=== PATIENT | female | born 1940 | race Caucasian/White ===

== ENCOUNTER 2016-10-27 15:18 | Emergency (ER) | payer OTHER ==
[~2016-10-27] VITALS: Ht 162.6 cm; Wt 54.5 kg
[~2016-10-27 15:18] MED LIST: HYDROCHLOROTHIA25 MG PO; POTASSIUM CHLO10 ME3 PO
[2016-10-27 16:04] LABS: HEMATOCRIT 36.2 % (36.0-46.0); MCH 30.1 PG (29.0-34.0); MCHC 32.6 G/DL (30.0-36.0); MCV 92.3 FL (83-99); MEAN PLAT.VOLUME 7.9 uM^3 (9.5-12.4); PLATELET COUNT 200 K/uL (156-360); RBC DIS.WIDTH-CV 14.7 % (11.8-14.6); RED BLOOD COUNT 3.92 M/uL (3.80-5.20); WHITE BLOOD COUNT 5.6 K/uL (4.1-10.2)
[2016-10-27 16:20] LABS: CHLORIDE 101 mEq/L (99-109); POTASSIUM 3.7 mEq/L (3.7-5.4); SODIUM 133 mEq/L (136-147)
[2016-10-27 16:21] LABS: GLUCOSE 74 mg/dL (70-99)
[2016-10-27 16:23] LABS: ANION GAP 13 MEQ/L (2-14)
[2016-10-27 16:25] LABS: GFR ESTIMATE (CALCULATED) > 59 mL/min/
[2016-10-27 16:26] LABS: UREA NITROGEN (BUN) 14 mg/dL (9-23)
[2016-10-27 16:40] LABS: ADD MIUA? YES; BILIRUBIN NEGATIVE; BLOOD SMALL; COLOR COLORLESS ((YELLOW)); GLUCOSE (STRIP) NEGATIVE; KETONES NEGATIVE; LEUKOCYTES NEGATIVE; NITRITE NEGATIVE; PROTEIN (STRIP) NEGATIVE; SPECIFIC GRAVITY 1.004 (1.000-1.030); UROBILINOGEN 0.2 MG/DL (0.2-1.0)
[2016-10-27 16:49] LABS: BACTERIA RARE /HPF; EPITHELIAL CELLS NONE SEEN /HPF; MUCUS TRACE /LPF; RED BLOOD CELLS 0-5 /HPF (0-5); UCUL ADDED? NO; WHITE BLOOD CELLS NONE SEEN /HPF (0-5)
[2016-10-27 19:39] VITALS: BP 136/63
== END 2016-10-27 19:40 | disposition home or self-care (01) ==
LOC: EME 15:18
PROVIDERS: Emergency Medicine
PROC: 3E0234Z Introduction of Serum, Toxoid and Vaccine into Muscle, Percutaneous Approach (ICD-10-PCS; principal; 2016-10-27)
DX: S50.311A Abrasion of right elbow, initial encounter (principal); S00.03XA Contusion of scalp, initial encounter; W18.30XA Fall on same level, unspecified, initial encounter; Y92.410 Unspecified street and highway as the place of occurrence of the external cause; I10 Essential (primary) hypertension
CPT/HCPCS: 70450; 73080; 80048; 81003; 85027; 87086; 99281; 99283